=== PATIENT | male | born 1990 | race Caucasian/White ===

== ENCOUNTER 2021-04-19 08:59 | Emergency (ER) | payer SELFPAY ==
[~2021-04-19] VITALS: Ht 162.6 cm; Wt 49.9 kg
[2021-04-19 09:39] VITALS: BP 147/77
== END 2021-04-19 15:53 | disposition home or self-care (01) ==
LOC: ER 09:05
DX: R10.13 Epigastric pain (principal)
CPT/HCPCS: 99282